=== PATIENT | male | born 1985 | race Caucasian/White ===

== ENCOUNTER → 2017-12-23 | Outpatient (CLI) | payer BC ==
--- NOTE | 2017-12-24 09:51 | EST ---
EXERCISE STRESS DATE OF SERVICE: 12/23/2017 AGE: 32 SEX: Male HT: 6'1" WT: 240 PROTOCOL: Martin. STAGE: IV DURATION OF EXERCISE: 12:30 HEART RATE REST: 66 BLOOD PRESSURE REST: 137/93 MAXIMUM HEART RATE ACHIEVED: 173 MAXIMUM BLOOD PRESSURE: 211/87 85% MPHR: 158 100% MPHR: 186 METS: 12.9 INDICATIONS: Chest pain. CLINICAL INFORMATION: The patient referred for stress test for chest pain evaluation. Baseline heart rate 66 beats per minute. Baseline blood pressure is 137/93 mmHg. Baseline 12-lead ECG shows normal sinus rhythm with subtle early repolarization abnormality. Patient exercised on a Martin protocol for 12-1/2 minutes achieving a peak heart rate of 173 beats per minute. Mildly hypertensive response to exercise (211/87 mmHg). There was no clear-cut ECG evidence for ischemia. A [address] depression was noted. No arrhythmias are noted. IMPRESSION: Good exercise capacity. The patient experienced chest pain during the test and a [address] depression was noted. MMODL / IJN: [id number] /
== END | disposition home or self-care (01) ==
LOC: RADNMMAIN 10:46
PROVIDERS: ATTEND Internal Medicine
DX: R07.9 Chest pain, unspecified (principal)
CPT/HCPCS: 93017

== ENCOUNTER → 2020-11-09 | Outpatient (CLI) | payer BC ==
--- NOTE | 2020-11-09 11:31 | US ---
EXAMINATION TYPE: US liver DATE OF EXAM: 11/09/2020 COMPARISON: NONE CLINICAL HISTORY: R94.5 Abnormal Liver Function. Abnormal labs. No pain. EXAM MEASUREMENTS: Liver Length: 17.9 cm Gallbladder Wall: 0.2 cm CBD: 0.5 cm Right Kidney: 10.2 x 5.2 x 4.9 cm Pancreas: Tail obscured by overlying bowel gas, echogenic in appearance Liver: Appears coarse and slight lobularity visualized in left lobe. Upper limits of normal in size . Gallbladder: wnl Evidence for sonographic Perez's sign: neg CBD: wnl Right Kidney: No hydronephrosis or masses seen IMPRESSION: 1. Mild fatty infiltration liver and Hepatomegaly.
== END | disposition home or self-care (01) ==
LOC: RADUSWWP 07:08
PROVIDERS: ATTEND Internal Medicine
DX: K76.0 Fatty (change of) liver, not elsewhere classified (principal); R16.0 Hepatomegaly, not elsewhere classified
CPT/HCPCS: 76705